=== PATIENT | male | born 1965 | race Caucasian/White ===

== ENCOUNTER 2025-03-28 17:51 | Emergency (ER) | payer OTHER, BC, SELFPAY ==
[2025-03-28] VITALS (15 sets, daily range): BP systolic 154–162; BP diastolic 83–98; PULSE 88–100; TEMP 35.8; O2SAT 90–97; BMI 25.9
--- NOTE | 2025-03-28 19:48 | ECG_ITS ---
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
--- NOTE | 2025-03-28 19:49 | XR_ITS ---
The [place] [id number] Patient Name: AFIA DOUGLAS MRN: [id number] date: 1965 Sex: M Assigned Patient Location: ER Current Patient Location: ER Accession/Order Number: [id number] Exam Date: 03/28/2025 20:57 Report Date: 03/28/2025 20:57 At the request of: MELECIO FLORIAN MD Procedure: XR chest 1V Plain film chest Single view HISTORY: Alcohol withdrawal. Weakness. COMPARISON: None FINDINGS: SUPPORT DEVICES: None POSTSURGICAL CHANGES: None HEART: Within normal limits PULMONARY KAYE: Within normal limits MEDIASTINUM: Unremarkable LUNGS AND PLEURA: No acute lung process, pleural effusion or pneumothorax identified. BONY STRUCTURES: Intact ADDITIONAL FINDINGS None XR/XR chest 1V IMPRESSION: No acute process. Impression dictated by: Jose Yu M.D. 03/28/2025 8:57 PM Dictation Location: [place] [address] Electronically authenticated by: [id number] Y Date: 03/28/2025 20:57
--- NOTE | 2025-03-28 19:50 | ED_ITS ---
HPI HPI - General Adult General Chief complaint: Alcohol Stated complaint: ALCOHOL WITHDRAWAL Time Seen by Provider: 03/28/25 19:45 Source: patient Mode of arrival: walk-in History of Present Illness HPI narrative: 60-year-old male presents for shaking and nausea. He states he is in alcohol withdrawal. He was on a 4-day cagle. The last time he drank was last night and about 11:00 this morning he developed his symptoms. No visual hallucinations or fever. He has been tremorous. Related Data Home Medications ?Medication ?Instructions ?Recorded ?Confirmed lisinopril 10 mg tablet mg 03/28/25 rosuvastatin 10 mg tablet mg 03/28/25 Previous Rx's ?Medication ?Instructions ?Recorded lorazepam 1 mg tablet (Ativan) 1 mg PO Q6H PRN alcohol withdrawal 03/28/25 4 days #14 tabs Allergies Allergy/AdvReac Type Severity Reaction Status Date / Time No Known Drug Allergies Allergy Verified 03/28/25 18:15 Review of Systems ROS Narrative A ten point review of systems is negative except as noted above. PFSH PFSH Social History Little interest or pleasure in doing things: several days Feeling down, depressed, or hopeless: several days Exam Narrative Exam Narrative: Nurses note and vital signs reviewed and patient is not hypoxic. General: The patient appears well and in no apparent distress. Patient is resting comfortably on cart. Skin: Warm, dry, no pallor noted. There is no rash noted. Head: Normocephalic, atraumatic Eye: Normal conjunctiva, no drainage Ears, Nose, Mouth, and Throat: oral mucosa is moist. Nares patent. Cardiovascular: Regular Rate and Rhythm Respiratory: Patient is in no distress, no accessory muscle use, lungs are clear to auscultation, no wheezing, rales or rhonchi Back: non-tender GI: Soft and nontender Musculoskeletal: The patient has no evidence of calf tenderness, no pitting edema, symmetrical pulses noted bilaterally Neurological: A&O, normal speech; mildly tremorous Psychiatric: Cooperative Constitutional Vital Signs, click to edit/add: Last Vital Signs Temp 96.4 F L 03/28/25 18:16 Pulse 94 H 03/28/25 20:40 Resp 18 03/28/25 20:40 BP 162/98 H 03/28/25 20:30 Pulse Ox 90 L 03/28/25 20:40 O2 Del Method Room Air 03/28/25 18:16 Course Vital Signs Vital signs: Vital Signs Temperature 96.4 F L 03/28/25 18:16 Pulse Rate 100 H 03/28/25 18:16 Respiratory Rate 18 03/28/25 18:16 Blood Pressure 154/83 H 03/28/25 18:16 Pulse Oximetry 97 03/28/25 18:16 Oxygen Delivery Method Room Air 03/28/25 18:16 Temperature 96.4 F L 03/28/25 18:16 Pulse Rate 94 H 03/28/25 20:40 Respiratory Rate 18 03/28/25 20:40 Blood Pressure 162/98 H 03/28/25 20:30 Pulse Oximetry 90 L 03/28/25 20:40 Oxygen Delivery Method Room Air 03/28/25 18:16 Medical Decision Making MDM Narrative Medical decision making narrative: The patient presents with mild alcohol withdrawal. He was given IV fluids and IV Valium. He was offered admission to the hospital versus going home and he chooses to go home. He will be discharged home with a prescription for Ativan and he is feeling improved. Blood work is nonspecific. Treatment diagnosis and follow-up were discussed with the patient and his . Differential Diagnosis Differential Diagnosis: Alcohol withdrawal, DTs, alcohol abuse Lab Data Lab results reviewed: Yes I reviewed the patient's lab results Labs: Lab Results 03/28/25 03/28/25 Range/Units 19:55 20:02 WBC 17.1 H (4.0-11.0) 10^3/uL RBC 5.10 (4.70-6.10) 10^6/uL Hgb 16.6 (14.0-18.0) g/dL Hct 45.8 (42.0-54.0) % MCV 89.8 (80.0-94.0) fL MCH 32.5 (25.9-34.0) pg MCHC 36.2 H (29.9-35.2) g/dL RDW 13.6 (11.0-15.0) % Plt Count 218 (150-450) 10^3/uL MPV 8.9 L (9.5-13.5) fL Neut % (Auto) 82.4 H (43.0-75.0) % Lymph % (Auto) 10.2 L (20.5-60.0) % [place] % (Auto) 6.7 (1.7-12.0) % Eos % (Auto) 0.1 L (0.9-7.0) % Baso % (Auto) 0.3 (0.2-2.0) % Neut # (Auto) 14.1 H (1.4-6.5) 10^3/uL Lymph # (Auto) 1.8 (1.2-3.8) 10^3/uL [place] # (Auto) 1.2 H (0.3-0.8) 10^3/uL Eos # (Auto) 0.0 (0.0-0.7) 10^3/uL Baso # (Auto) 0.1 (0.0-0.1) 10^3/uL Abs Immat Gran (auto) 0.05 H (0.00-0.03) 10^3/uL Imm/Tot Granulo (auto) 0.3 (0.0-0.5) % Sodium 129 L (136-145) mmol/L Potassium 3.9 (3.5-5.1) mmol/L Chloride 91 L (98-107) mmol/L Carbon Dioxide 26.5 (21.0-32.0) mmol/L Anion Gap 15.4 BUN 8.0 (7.0-18.0) mg/dL Creatinine 0.77 (0.70-1.30) mg/dL Est GFR ( Amer) >60 (>=60 mL/min/1.73m^2) Est GFR (Non-Af Amer) >60 (>=60 mL/min/1.73m^2) BUN/Creatinine Ratio 10.4 Glucose 87 (74-106) mg/dL Calcium 8.9 (8.5-10.1) mg/dL Total Bilirubin 0.8 (0.2-1.0) mg/dL Direct Bilirubin 0.2 (0.0-0.2) mg/dL AST 77 H (15-37) U/L ALT 135 H (16-63) U/L Alkaline Phosphatase 117 H (46-116) U/L Total Protein 7.4 (6.4-8.2) g/dL Albumin 4.3 (3.4-5.0) g/dL Globulin 3.1 g/dL Albumin/Globulin Ratio 1.4 Urine Color Lt. yellow (YELLOW) Urine Clarity Clear (CLEAR) Urine pH 6.0 (5.0-9.0) Ur Specific [place] 1.020 (1.005-1.025) Urine Protein Negative (NEG/TRACE) mg/dL Urine Glucose (UA) Negative (NEGATIVE) mg/dL Urine Ketones Negative (NEGATIVE) mg/dL Urine Occult Blood Negative (NEGATIVE) Urine Nitrite Negative (NEGATIVE) Urine Bilirubin Negative (NEGATIVE) Urine Urobilinogen 0.2 (0.2-1.0) EU/dL Ur Leukocyte Esterase Negative (NEGATIVE) Urine RBC None seen (0-2) #/HPF Urine WBC 0-2 A (NONE SEEN) #/HPF Ur Squamous Epith Cells Rare (NONE/RARE) #/LPF Urine Crystals None seen (None Seen) #/HPF Urine Bacteria None seen (NONE SEEN) #/HPF Urine Casts Seen A (NONE SEEN) #/LPF Hyaline Casts Rare Urine Mucus None seen (NONE SEEN) Ur Culture Indicated? No Ethanol Quant 23 mg/dL Imaging Data Chest x-ray: Radiologist's impression: ITS Impressions Chest X-Ray 03/28/25 19:49 IMPRESSION: No acute process. Impression dictated by: Jose Yu M.D. 03/28/2025 8:57 PM Dictation Location: [facility] Electronically authenticated by: [id number] Y Date: 03/28/2025 20:57 ECG Data Attestation: I personally reviewed and interpreted this ECG as follows: (EKG on my interpretation shows sinus rhythm with rate of 91 and no acute change) Discharge Plan Discharge Chief Complaint: Alcohol Clinical Impression: Alcohol withdrawal syndrome Patient Disposition: Home, Self-Care Time of Disposition Decision: 21:16 Condition: Good Mode of Transportation: Private Vehicle Prescriptions / Home Meds: New lorazepam [Ativan] 1 mg tablet 1 mg PO Q6H PRN (Reason: alcohol withdrawal) 4 Days Qty: 14 0RF No Action lisinopril 10 mg tablet rosuvastatin 10 mg tablet Print Language: Tamazight Instructions: Abuse of Alcohol (ED), Alcohol Withdrawal (ED) Referrals: Physician,Non-Staff, MD [Primary Care Provider] - 1 week
[2025-03-28 20:12] LABS: Hematocrit 45.8 % (42.0-54.0); Hemoglobin 16.6 g/dL (14.0-18.0); Immature Granulocytes Abs Auto 0.05 10^3/uL (0.00-0.03); Immature Granulocytes Pct Auto 0.3 % (0.0-0.5); Lymphocytes Absolute Auto 1.8 10^3/uL (1.2-3.8); Mean Corpuscular HGB Conc 36.2 g/dL (29.9-35.2); Mean Corpuscular Hemoglobin 32.5 pg (25.9-34.0); Mean Corpuscular Volume 89.8 fL (80.0-94.0); Platelet Count 218 10^3/uL (150-450); Red Blood Count 5.10 10^6/uL (4.70-6.10); White Blood Count 17.1 10^3/uL (4.0-11.0)
[2025-03-28 20:15] LABS: Glucose Urine UA NEGATIVE (NEGATIVE)
[2025-03-28 20:26] LABS: Cast Seen? SEEN #/LPF (NONE SEEN); Crystals Seen? None Seen #/HPF (None Seen); Urine Culture Indicated NO
[2025-03-28 20:26] LABS: Alanine Aminotransferase 135 U/L (16-63); Albumin Globulin Ratio 1.4; Albumin Level 4.3 g/dL (3.4-5.0); Alkaline Phosphatase 117 U/L (46-116); Aspartate Amino Transferase 77 U/L (15-37); Globulin 3.1 g/dL; Total Protein 7.4 g/dL (6.4-8.2)
[2025-03-28] MEDS: DIAZEPAM 10 MG/2 ML SYRINGE 5 MG IV (20:27)
[2025-03-28] MEDS: 0.9 % SODIUM CHLORIDE 1,000 ML 1000 ML IV (20:27)
[2025-03-28 20:33] LABS: Anion Gap 15.4; Blood Urea Nitrogen 8.0 mg/dL (7.0-18.0); Calcium 8.9 mg/dL (8.5-10.1); Carbon Dioxide 26.5 mmol/L (21.0-32.0); Chloride 91 mmol/L (98-107); Estimated GFR (African America >60 (>=60 mL/min/1.73m^2); Estimated GFR (Non-African Ame >60 (>=60 mL/min/1.73m^2); Glucose 87 mg/dL (74-106); Potassium 3.9 mmol/L (3.5-5.1); Sodium 129 mmol/L (136-145)
[2025-03-28] MEDS: DIAZEPAM 10 MG/2 ML SYRINGE 2.5 MG IV (21:41)
--- NOTE | 2025-03-28 21:57 | PC.NURSE ---
i gave this patient verbal and written discharge orders along with 1 e-script, and this patient voices yes to understanding these. at time of discharge this patient voices no concerns, needs and this patient shows no signs of distress. i informed this patient not to drive a automobile, operate machinery or drinking alcohol tonight or when taking your prescription
== END 2025-03-28 21:56 | disposition home or self-care (01) ==
PROVIDERS: Emergency Provider Emergency Medicine
DX: F10.239 Alcohol dependence with withdrawal, unspecified (principal); Y90.9 Presence of alcohol in blood, level not specified
CPT/HCPCS: 36415; 71045; 80048; 80076; 80320; 81001; 85025; 93005; 96374; 96375; 96376; 99285; J2405; J3360